=== PATIENT | female | born 1935 | race Caucasian/White ===

== ENCOUNTER → 2017-06-02 | Outpatient (CLI) | payer MEDICARE, OTHER ==
[~2017-06-02] MED LIST: B-100 COMPLEX1 EAC1 PO; CO Q-1010 MG PO; L-LYSINE500 M1 PO; LIPITOR20 MG PO; MAGNESIUM250 M1 PO; MULTIVITAMINS1 EAC7 PO; NORVASC5 MG PO; STRONTIUM CHLORI1 GM MC; ULTRAM 50MG TAB50 MG PO; VITAMIN D1000 UNI1 PO; XALATAN2.5 ML OPHTHALMIC
[2017-06-02 10:40] LABS: CALCIUM 9.1 mg/dL (8.5-10.1); CREATININE 1.5 mg/dL (0.6-1.3); PHOSPHORUS* 4.7 mg/dL (2.5-4.9); POTASSIUM 4.3 mmol/L (3.5-5.1)
[2017-06-02 18:07] LABS: IgA 90 mg/dL (64-422); IgG 543 mg/dL (700-1600); IgM 40 mg/dL (26-217)
[2017-06-03 15:10] LABS: KAPPA FREE LIGHT CHAINS 19.5 mg/L (3.3-19.4); LAMBDA FREE LIGHT CHAINS 13.5 mg/L (5.7-26.3)
[2017-06-04 11:12] LABS: GLOBULIN TOTAL 2.5 g/dL (2.2-3.9); M-SPIKE Not Observed g/dL (Not Observed)
== END ==
LOC: M.LAB 09:53
PROVIDERS: Internal Medicine Nephrology
DX: N17.9 Acute kidney failure, unspecified (principal)

== ENCOUNTER 2017-07-30 11:20 | Observation (INO) | payer MEDICARE, OTHER ==
[~2017-07-30] VITALS: Ht 152.4 cm; Wt 60.0 kg
--- NOTE | 2017-07-30 02:26 | NUR ---
RECIEVED REPORT AND ASSUMED CARE OF PATIENT AT 1930. 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 ASSESSMENT AND VITALS COMPLETED CHARTED, BLOOD PRESSURE ELEVATED- 185/65. PRN HYDRALAZINE ADMINISTERED WITH IMPROVEMENT- 135/55. PATIENT DENIES PAIN AND DISCOMFORT. PATIENT RESTING COMFORTABLY AT THIS TIME. GOAL IS CONTROLLED BLOOD PRESSURE AND REST COMFORTABLY WITH NO CHEST PAIN. CALL LIGHT WITHIN REACH
[~2017-07-30 11:20] MED LIST changes: -NORVASC5 MG PO
[2017-07-30 11:23] VITALS: BP 143/92
[2017-07-30 11:39] LABS: ABSOLUTE BASOPHILS 0.1 thou/uL (0.0-0.2); ABSOLUTE EOSINOPHILS 0.3 thou/uL (0.0-0.7); ABSOLUTE LYMPHOCYTES 1.3 thou/uL (0.8-5.3); ABSOLUTE MONOCYTES 0.7 thou/uL (0.0-1.2); EOSINOPHILS 4.6 %; HEMATOCRIT 35.5 % (37.0-47.0); LYMPHOCYTES 17.3 %; MCH 31.8 pg (26.0-34.0); MCHC 33.7 g/dL (28.0-37.0); MCV 94.2 fL (80.0-100.0); MONOCYTES 9.1 %; MPV 8.3 fl. (7.2-11.1); NUCLEATED RBCS 0 /100WBC; PLATELET COUNT* 246 thou/uL (150-400); RBC 3.77 mil/uL (4.20-5.00); RDW-CV 12.6 % (10.5-14.5); WBC 7.3 thou/uL (4.0-11.0)
[2017-07-30 11:48] LABS: ANION GAP 9 mmol/L (7-16); BUN 22 mg/dL (7-18); CALCIUM 9.6 mg/dL (8.5-10.1); CHLORIDE 105 mmol/L (98-107); CO2 29 mmol/L (21-32); CREATININE 1.4 mg/dL (0.6-1.3); GLUCOSE 138 mg/dL (70-99); POTASSIUM 3.9 mmol/L (3.5-5.1); SODIUM 143 mmol/L (136-145)
[2017-07-30 11:51] LABS: APTT 26.2 Seconds (25.0-31.3); INR 1.1; PROTIME 10.3 Seconds (9.20-11.50)
[2017-07-30 12:09] LABS: ALBUMIN 3.7 g/dL (3.4-5.0); ALKALINE PHOSPHATASE 70 U/L (46-116); LIPASE 423 U/L (73-393); NT-PRO BRAIN NAT PEPTIDE 98 pg/mL (<300); SGOT 17 U/L (15-37); SGPT 23 U/L (30-65); TOTAL BILIRUBIN 0.4 mg/dL (<0.1-1.0); TROPONIN-I LEVEL <0.06 ng/mL (<0.06)
[2017-07-30 13:28] VITALS: BP 153/87
[2017-07-30 15:29] VITALS: BP 155/82
--- NOTE | 2017-07-30 15:50 | EKG ---
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
--- NOTE | 2017-07-30 15:52 | EKG ---
[place] [address] ELECTROCARDIOGRAM REPORT Name: BLAYNE BROCK Room: [address] ADM IN .R.#: [id number] Admission: 07/30/17 Attend Phys: Alin Dexter MD Discharge: Date of : 31 Report #: [id number] THIS REPORT FOR: //name// [facility] Test Date: 2017-07-30 Test Time: 12:17:04 Pat Name: BLAYNE BROCK Department: Room: [facility] Gender: F [place]: : 1935 Requested By: Vincent Mcdonald Order Number: [id number] MD: Sandro Mays Measurements Intervals [place] Rate: 63 P: 57 [place]: 192 QRS: 2 QRSD: 85 T: 33 QT: 403 QTc: 413 Interpretive Statements Sinus rhythm nonspecific st changes Low voltage, extremity and precordial leads Electronically Signed On 07-30-2017 15:52:14 CDT by Sandro Mays [email or web address] <ELECTRONICALLY SIGNED> By: Sandro Mays MD, [facility] 07/30/17 1552 1216 16 Sandro Mays MD, FACC /EPI
--- NOTE | 2017-07-30 18:46 | NUR ---
ADMITTED TO ROOM 203 THIS AFTERNOON, INITIAL ASSESSMENT COMPLETE. PATIENT REPORTS HAVING INTERMITTENT CHEST PAIN FOR THE LAST FEW DAYS, FEELS THAT IT MAY BE STRESS-RELATED. UP AD TRACEY, DENIES CURRENT PAIN, VITAL SIGNS STABLE, MED LIST REVIEWED, SEE ASSESSMENT FOR DETAILS, ADMITTED FOR NEW ONSET A-FIB WITH SYMPTOMS. DISCHARGE GOALS DISCUSSED, CALL LIGHT IN REACH, CONT POC.
[2017-07-30 20:00] VITALS: BP 177/75; BP 185/65
[2017-07-31] VITALS: BP 134/55
[2017-07-31 04:00] VITALS: BP 122/53
--- NOTE | 2017-07-31 04:49 | NUR ---
PATIENT PROGRESSING TOWARDS GOALS: BLOOD PRESSURE WITHIN NORMAL LIMITS. PATIENT HAS DENIED CHEST PAIN AND DISCOMFORT THROUGHOUT SHIFT. PATIENT HAS BEEN RESTING COMFORTABLY. HOURLY ROUNDING OBSERVED. CALL LIGHT WITHIN REACH.
[2017-07-31 05:18] LABS: ABSOLUTE BASOPHILS 0.1 thou/uL (0.0-0.2); ABSOLUTE EOSINOPHILS 0.4 thou/uL (0.0-0.7); ABSOLUTE LYMPHOCYTES 1.3 thou/uL (0.8-5.3); ABSOLUTE MONOCYTES 0.7 thou/uL (0.0-1.2); ABSOLUTE NEUTROPHILS 4.4 thou/uL (1.6-8.1); EOSINOPHILS 5.6 %; HEMATOCRIT 32.7 % (37.0-47.0); HEMOGLOBIN 11.1 gm/dL (12.0-15.0); LYMPHOCYTES 18.9 %; MCV 94.3 fL (80.0-100.0); MONOCYTES 10.3 %; MPV 8.8 fl. (7.2-11.1); NUCLEATED RBCS 0 /100WBC; PLATELET COUNT* 228 thou/uL (150-400); POLYS 64.2 %; RBC 3.47 mil/uL (4.20-5.00); RDW-CV 12.8 % (10.5-14.5); WBC 6.8 thou/uL (4.0-11.0)
[2017-07-31 05:59] LABS: CREATININE 1.3 mg/dL (0.6-1.3); POTASSIUM 3.6 mmol/L (3.5-5.1)
[2017-07-31 08:00] VITALS: BP 131/69
[2017-07-31] MEDS ORDERED: NORVASC5 MG PO (09:43)
[2017-07-31 09:50] VITALS: BP 131/69
[2017-07-31 09:56] VITALS: BP 131/69
--- NOTE | 2017-07-31 10:09 | NUR ---
ASSUMED RESPONSIBILITY OF PT THIS AM PT IS ALERT AND ORIENTED X4 DENIES ANY PAIN HRR AT 61 AMLODIPINE STARTED CARDIOLOGY TO SEE PT AND THEN DISCHARGE WITH A HEART MONITOR MORE THAN LIKELY NO OTHER CONCERNS AT THIS TIME CALL LIGHT IN REACH
[2017-07-31 12:00] VITALS: BP 134/61
--- NOTE | 2017-07-31 13:28 | NUR ---
PT LEFT VIA WC IN POV WITH SON AND PT WITHOUT ANY CONCERNS STARTED ON AMLODIPINE INFO GIVEN IV DISCONTINUED WITH COPIOUS AMOUNTS OF BLEEDING HELD PRESSURE FOR 5 MINUTES AND STOPPED
--- NOTE | 2017-07-31 16:32 | EKG ---
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1935 Requested By: Vincent Mcdonald Order Number: [id number] Reading MD: Satya Sepulveda Measurements Intervals [place] Rate: 61 P: 43 [place]: 191 QRS: -4 QRSD: 85 T: 4 QT: 416 QTc: 419 Interpretive Statements Sinus rhythm Low voltage, extremity and precordial leads Compared to ECG 07/30/2017 12:17:04 ST (T wave) deviation no longer present Electronically Signed On 07-31-2017 16:32:24 CDT by Satya Sepulveda [email or web address] <ELECTRONICALLY SIGNED> By: Satya Sepulveda MD, FACC 07/31/17 1632 1719 1719 Satya Sepulveda MD, [facility] /EPI
--- NOTE | 2017-07-31 16:37 | EKG ---
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1935 Requested By: Vincent Mcdonald Order Number: [id number] Reading MD: Satya Sepulveda Measurements Intervals [place] Rate: 71 P: 74 [place]: 188 QRS: 2 QRSD: 88 T: 44 QT: 423 QTc: 460 Interpretive Statements Sinus rhythm Low voltage, extremity and precordial leads Delayed R-wave progression Compared to ECG 07/30/2017 12:17:04 ST (T wave) deviation no longer present Electronically Signed On 07-31-2017 16:36:55 CDT by Satya Sepulveda [email or web address] <ELECTRONICALLY SIGNED> By: Satya Sepulveda MD, FACC 07/31/17 1636 2331 2331 Satya Sepulveda MD, [facility] /EPI
--- NOTE | 2017-07-31 16:39 | EKG ---
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1935 Requested By: Sandro Mays Order Number: [id number] MD: Satya Sepulveda Measurements Intervals [place] Rate: 63 P: 58 [place]: 184 QRS: -6 QRSD: 77 T: 13 QT: 408 QTc: 418 Interpretive Statements Sinus rhythm Low voltage, extremity and precordial leads Compared to ECG 07/30/2017 12:17:04 ST (T wave) deviation no longer present Electronically Signed On 07-31-2017 16:38:51 CDT by Satya Sepulveda [email or web address] <ELECTRONICALLY SIGNED> By: Satya Sepulveda MD, FACC 07/31/17 1638 0850 0850 Satya Sepulveda MD, [facility] /EPI
--- NOTE | 2017-07-31 17:42 | CON ---
[address] [address] CONSULTATION Name: BLAYNE BROCK Room: [address] Scott Calderón#: [id number] Admission: 07/30/17 Attend Phys: Alin Dexter MD Discharge: 07/31/17 Date of : 31 Report #: [id number] THIS REPORT FOR: //name// CC: Alin Way MD DATE OF SERVICE: 07/30/2017 HISTORY OF PRESENT ILLNESS: The patient is an 81-year-old white female I was asked to see in the hospital today after she was noted to have an irregular heartbeat. The patient actually was seen in the Cardiology Clinic back in 2007. She had been scheduled to undergo cataract surgery. As part of preoperative evaluation, underwent a stress echocardiogram that looked abnormal. I performed a cardiac catheterization in 06/2007 here at [facility] that showed normal ventricular function and no significant coronary artery disease. It was felt her chest pain was noncardiac. She states recently, her has had a lot of health issues. However, she stays fairly active. She notes she was at home this morning when she felt her heart pounding. She felt a pressure in her back. Her blood pressure was elevated, so she came to the Emergency Room. On arrival, she was noted to be in atrial fibrillation. She was admitted for further evaluation and treatment. After admission to a monitored bed, the patient then converted to sinus rhythm. I was asked to see her for further evaluation and treatment. She denies any exertional dyspnea, syncope. PAST MEDICAL HISTORY: She has had previous cataract extraction, appendectomy, tonsillectomy, shoulder surgery, surgery on her ear. She has no history of hypertension or diabetes. Does have hyperlipidemia. MEDICATIONS: Lipitor, vitamin D. ALLERGIES: SHE HAS INTOLERANCE TO SULFA DRUGS, ACETAMINOPHEN, AMOXICILLIN. FAMILY HISTORY: Her mother had angina. SOCIAL HISTORY: She is . Her is actually a patient of mine. He has had coronary artery disease and AFib. She has no history of smoking or alcohol abuse. REVIEW OF SYSTEMS: She has had no history of stroke, asthma, peptic ulcer disease, liver disease. She has had chronic kidney disease, no cancer. No chronic skin condition. Does wear glasses. PHYSICAL EXAMINATION: GENERAL: Revealed an elderly frail appearing female lying in bed. She [place] [address] CONSULTATION Name: BLAYNE BROCK [address] [id number] Admission: 07/30/17 Attend Phys: Alin Dexter MD Discharge: 07/31/17 Date of : 31 Report #: [id number] VITAL SIGNS: She had blood pressure 140/90, pulse is 70. She is afebrile. HEENT: She was anicteric, conjunctivae pink. Mucous membranes moist. NECK: Veins nondistended. No carotid bruits. Neck supple. CHEST: Clear to auscultation. CARDIOVASCULAR: Regular rate and no significant murmur. ABDOMEN: Soft, nontender. EXTREMITIES: Had no edema. Dorsalis pedis pulse 2+ bilaterally. SKIN: Warm, dry. NEUROLOGIC: Nonfocal. LYMPH: No adenopathy. MUSCULOSKELETAL: No joint effusion. Her ECG on admission this morning appeared to show a sinus rhythm with nonspecific ST-segment changes. There was a significant amount of artifact and ECG was interpreted by the computer as representing atrial fibrillation. Her workup in the Emergency Room today, she had a portable chest x-ray that showed normal heart size, clear lung mann. CT scan of the chest without contrast showed liver cysts, chronic lung changes, cardiomegaly, coronary calcifications, cyst in the liver. She had lab work, sodium 143, creatinine 1.4. Liver function studies were normal. Troponin 0.06. White blood cell count 7.3, hemoglobin 12.0. IMPRESSION AND RECOMMENDATIONS: 1. Palpitations. The ECG on admission, I believe actually showed sinus rhythm with a significant amount of artifact. At this time, I would consider discharging the patient with an event recorder to evaluate for arrhythmias. 2. History of hyperlipidemia. The patient is on a statin drug. <ELECTRONICALLY SIGNED> By: Sandro Mays MD, FACC 07/31/17 1742 1647 06Sandro Mays MD, FACC /nt
== END 2017-07-31 13:28 | disposition home or self-care (01) ==
LOC: M.ERS 11:20 → M.2W 12:17 → M.TBA-ER 12:17 → M.2W 12:17
PROVIDERS: Family Medicine; ADMIT Internal Medicine
DX: I48.91 Unspecified atrial fibrillation (principal); I16.0 Hypertensive urgency; M19.90 Unspecified osteoarthritis, unspecified site; E78.5 Hyperlipidemia, unspecified; E78.00 Pure hypercholesterolemia, unspecified; I12.9 Hypertensive chronic kidney disease with stage 1 through stage 4 chronic kidney disease, or unspecified chronic kidney disease; N18.9 Chronic kidney disease, unspecified; Z82.49 Family history of ischemic heart disease and other diseases of the circulatory system

== ENCOUNTER → 2018-04-30 | Outpatient (CLI) | payer MEDICARE, OTHER ==
[~2018-04-30] MED LIST changes: +NORVASC5 MG PO
== END ==
LOC: M.RAD 13:30
DX: Z12.31 Encounter for screening mammogram for malignant neoplasm of breast (principal); M85.89 Other specified disorders of bone density and structure, multiple sites; Z78.0 Asymptomatic menopausal state

== ENCOUNTER → 2018-05-13 | Outpatient (CLI) | payer MEDICARE, OTHER ==
[2018-05-13 10:10] LABS: ALBUMIN 3.8 g/dL (3.4-5.0); CREATININE 1.4 mg/dL (0.6-1.3); PHOSPHORUS* 4.5 mg/dL (2.5-4.9); POTASSIUM 4.1 mmol/L (3.5-5.1)
[2018-05-13 12:13] LABS: CALCIUM 9.1 mg/dL (8.5-10.1); CREATININE 1.4 mg/dL (0.6-1.3); PHOSPHORUS* 4.6 mg/dL (2.5-4.9)
== END ==
LOC: M.LAB 09:22
PROVIDERS: Internal Medicine Nephrology
DX: N18.3 Chronic kidney disease, stage 3 (moderate) (principal); E78.00 Pure hypercholesterolemia, unspecified; H26.9 Unspecified cataract; Z90.49 Acquired absence of other specified parts of digestive tract

== ENCOUNTER → 2019-09-07 | Outpatient (CLI) | payer MEDICARE, OTHER | LOC: M.RAD 13:33 | DX: J44.9 Chronic obstructive pulmonary disease, unspecified (principal); R50.9 Fever, unspecified ==

== ENCOUNTER → 2020-10-16 | Outpatient (CLI) | payer MEDICARE, OTHER | LOC: M.RAD 09:00 | PROVIDERS: ATTEND Registered Nurse Diabetes Educator | DX: M85.88 Other specified disorders of bone density and structure, other site (principal); Z78.0 Asymptomatic menopausal state ==

== ENCOUNTER → 2020-12-29 | Outpatient (CLI) | payer MEDICARE, OTHER ==
[2020-12-29 10:34] LABS: CALCIUM 9.3 mg/dL (8.5-10.1); CREATININE 1.5 mg/dL (0.6-1.3); POTASSIUM 4.3 mmol/L (3.5-5.1)
== END ==
LOC: M.LAB 10:04
PROVIDERS: ATTEND Nurse Practitioner
DX: N18.9 Chronic kidney disease, unspecified (principal)